=== PATIENT | female | born 1955 | race Caucasian/White ===

== ENCOUNTER 2020-04-08 15:00 | Outpatient (RCR) | payer OTHER, SELFPAY ==
[2020-03-30 08:08] VITALS: BMI 25.0
[2020-04-08 15:11] VITALS: BMI 25.0
[2020-04-08 16:10] VITALS: BMI 25.0
== END 2020-06-28 23:59 | disposition home or self-care (01) ==
LOC: ANHDMC 15:00
PROVIDERS: PCP Family Medicine Sports Medicine; Visit Provider Family Medicine Sports Medicine
DX: K56.609 Unspecified intestinal obstruction, unspecified as to partial versus complete obstruction (principal); Z71.3 Dietary counseling and surveillance
CPT/HCPCS: 97802

== ENCOUNTER 2021-05-28 10:48 | Emergency (ER) | payer OTHER, SELFPAY ==
--- NOTE | ~2021-05-28 | XR_ITS ---
EXAMINATION: [id number] DATE: 05/28/2021 11:17 INDICATION: Posterior left lower rib pain post fall TECHNIQUE: A frontal inspiratory view of the chest and 4 views of the left ribs were obtained. COMPARISON: None FINDINGS: 3 mm displacement of a left 12th rib fracture. No other rib fractures identified. Lungs are clear wit h no focal airspace opacities, pleural effusion, pulmonary edema or pneumothorax. Cardiomediastinal s ilhouette is normal. IMPRESSION: 1. Mildly displaced left 12th rib fracture. No acute cardiopulmonary disease. Reviewed, dictated and finalized at location A.
[2021-05-28 11:03] VITALS: BP 126/66; PULSE 76; RESP 20; TEMP 36.1; O2SAT 97
--- NOTE | 2021-05-28 11:03 | ED.FALL ---
HPI - Fall General Chief Complaint: Fall Stated Complaint: fell left side pain Time Seen by Provider: 05/28/21 11:03 Source: patient Mode of arrival: ambulatory Limitations: no limitations History of Present Illness HPI Narrative: Edith Fan is a 66 yo female with PMH of migraine, hyperlipidemia, thyroid cancer, who comes to [facility] after falling against a small table last night. She was getting up and lost her balance on a pillow but has been taking a lot of natural medications and herbs to try to facilitate her sleep. She has pain in her left posterior ribs, abrasion and bruising at site Related Data Home Medications Medication Instructions Recorded Confirmed amitriptyline 05/28/21 diclofenac sodium PO 05/28/21 dihydroergotamine INTRANASAL 05/28/21 dihydroergotamine [Migranal] INTRANASAL 05/28/21 erenumab-aooe [Aimovig mg SUBCUT 05/28/21 Autoinjector] icosapent ethyl g PO 05/28/21 levothyroxine 05/28/21 linaclotide [Linzess] mcg 05/28/21 propranolol 05/28/21 rimegepant [Nurtec ODT] mg 05/28/21 simvastatin mg 05/28/21 Allergies Allergy/AdvReac Type Severity Reaction Status Date / Time morphine Allergy Unknown Verified 09/23/15 15:19 Review of Systems Review of Systems: CONSTITUTIONAL: Denies fever, chills, sweats. EYES: Denies visual changes, redness, discharge. ENT: Denies rhinorrhea, congestion, sore throat, otalgia. CARDIOVASCULAR: Denies chest pain, palpitations, edema. RESPIRATORY: Denies dyspnea, wheezing, cough GASTROINTESTINAL: Denies abdominal pain, nausea, vomiting, diarrhea. GENITOURINARY: Denies dysuria, hematuria, abnormal discharge SKIN: Denies rash or itching. NEUROLOGIC: Denies numbness, or focal weakness. PSYCHIATRIC: Denies anxiety or depression. Left posterior rib pain with bruising and abrasion PMFSH Past Medical History Medical History Hyperlipidemia Insomnia Migraine Thyroid cancer Family History Family History Mother Family history of thyroid disease Family history of mental disorder Depression Family history of lung disease Father Family history of thyroid disease Family history of elevated blood lipids Family history of alcoholism Family history of diabetes mellitus in first degree relative Family history of coronary artery disease Family history of seizure disorder Family history of heart disease in male family member before age 55 Family history of hearing loss Social History Social History Smoking status: Never smoker Alcohol intake: never Spiritual care concerns: No Comments At time of signature, I agree with nursing past medical, surgical, social and family history. There is no relevant family history pertinent to the presenting complaint. Exam Narrative: GENERAL: This is a well-nourished, well-developed patient, in moderate distress. HEAD: normocephalic, atraumatic. EYES: Sclera clear/white. Vision is grossly intact. EARS: External ears normal, . Hearing grossly intact. NOSE: External nose normal without nasal discharge, nares without redness, no rhinorrhea. THROAT: Mucous membranes moist, NECK: Neck supple, non-tender CARDIOVASCULAR: Regular rate and rhythm without murmurs, gallops, or rubs. RESPIRATORY: Clear to auscultation. Breath sounds equal bilaterally. No wheezes, rales, or rhonchi. Has pain when twists side to side or takes deep breath GASTROINTESTINAL: Abdomen soft, non-tender, SKIN: warm, intact with no suspicious lesions or rash, good texture and turgor. Abrasion and bruising of the point of contact on the left posterior lower ribs NEURO: awake, alert, and oriented to person, place and time. There were no obvious focal neurologic abnormalities. Steady gait EXTREMITIES: Normal range of motion. BACK: Nontender without deformity Course Cours
[2021-05-28 11:04] VITALS: RESP 20
--- NOTE | 2021-05-28 11:25 | PC.NURSE ---
incentive spirometer given per order with teaching done
== END 2021-05-28 11:43 | disposition home or self-care (01) ==
PROVIDERS: Emergency Provider Nurse Practitioner; PCP Family Medicine Sports Medicine
DX: S22.32XA Fracture of one rib, left side, initial encounter for closed fracture (principal); W19.XXXA Unspecified fall, initial encounter; E78.5 Hyperlipidemia, unspecified; Z85.850 Personal history of malignant neoplasm of thyroid
CPT/HCPCS: 71101; 99213; G0463

== ENCOUNTER → 2022-07-10 08:04 | Outpatient (CLI) | payer MEDICARE, SELFPAY ==
--- NOTE | ~2022-07-10 | MMUS_ITS ---
EXAMINATION: MM diagnostic jess LT w eyal, US breast LT limited HISTORY: Patient complains of upper far outer left breast lump since 04/12/2022 mammogram TECHNIQUE: ML, MLO and CC full field and spot 3-D tomosynthesis images of the left breast were perfor med and synthetic 2-D images were generated. Rotated lateral craniocaudal view of left breast. CAD an alysis was submitted and interpreted. High resolution upper outer quadrant left breast ultrasound inc luding the area of clinical complaint of left breast lump was performed. COMPARISON: 04/12/2022 and 01/12/2021 bilateral screening mammogram examinations BREAST PARENCHYMAL COMPOSITION: The breasts are heterogeneously dense, which may obscure small masses . FINDINGS: MAMMOGRAPHIC FINDINGS: The area of complaint in the far upper outer left breast is composed of adipose tissue. No suspicious mammographic mass or architectural distortion is noted. No suspicious mass, architectural distortion, malignant calcification, skin thickening or retraction of the left breast or significant new or developing density since 01/12/2021 04/12/2022 is noted. ULTRASOUND: No suspicious mass or shadowing is detected in the area of clinical complaint of left breast lump at 2:00 15 cm from the nipple. Lipoma is not excluded. At 12:00 2 cm from the nipple there is a parallel circumscribed hypoechoic lesion measuring 3 x 4.3 x 4.2 mm, without internal vascularity or posterior shadowing, most consistent with benign process. IMPRESSION: 1. No mammographic evidence of malignancy; no suspicious mammographic or sonographic finding at the a david of clinical complaint at 2:00 15 cm from nipple 2. Routine annual mammographic screening is recommended BI-RADS Category 2: Benign finding(s). Reviewed, dictated and finalized at location A. IMPRESSION: 1. No mammographic evidence of malignancy; no suspicious mammographic or sonogr aphic finding at the area of clinical complaint at 2:00 15 cm from nipple 2. Routine annual mammographic screening is recommended BI-RADS Category 2: Benign finding(s).
== END ==
PROVIDERS: PCP Family Medicine Sports Medicine
DX: N63.32 Unspecified lump in axillary tail of the left breast (principal)
CPT/HCPCS: 76642; 77061; 77065; G0279